=== PATIENT | male | born 1945 | race Two or more races ===

== ENCOUNTER 2018-02-14 12:44 | Inpatient (IN) | payer MEDICAID ==
[~2018-02-14] VITALS: Ht 170.2 cm; Wt 95.3 kg
[2018-02-14] MEDS ORDERED: ACETAMINOPHEN 325 MG TABLET PO PRN (18:15)
[2018-02-14] MEDS ORDERED: Z GUARD REMEDY PASTE 57 GM TUBE TOP PRN (18:15)
[2018-02-14] MEDS ORDERED: MAGNESIUM HYDROXIDE 30 ML LIQUID UDC PO PRN (18:15)
[2018-02-14] MEDS ORDERED: ONDANSETRON 4 MG/2 ML VIAL IV PRN (18:15)
[2018-02-14] MEDS ORDERED: HYDROCODONE/APAP 5-325MG TABLET PO PRN (18:15)
[2018-02-14] MEDS ORDERED: ZOLPIDEM 5 MG TABLET PO PRN (18:15)
[2018-02-14] MEDS ORDERED: LEVO100T10 PO (18:34)
[2018-02-14] MEDS ORDERED: METO-356 PO (18:34)
[2018-02-14] MEDS ORDERED: PANT40TA4 PO (18:34)
[2018-02-14] MEDS ORDERED: TAMS0.4C34 PO (18:34)
[2018-02-14] MEDS ORDERED: AMLO10TA2 PO (18:34)
[2018-02-14] MEDS ORDERED: LOSA100T15 PO (18:34)
[2018-02-14] MEDS ORDERED: ATOR40TA PO (18:54)
[2018-02-14] MEDS ORDERED: INSU100V7 SQ (18:54)
[2018-02-14] MEDS ORDERED: INSU100C4 SQ (19:15)
[2018-02-14 20:00] VITALS: BP 161/90
--- NOTE | 2018-02-14 20:00 | NUR ---
RECEIVED PATIENT AWAKE IN BED, HE'S AOX4. HE DENIES PAIN OR ANY DISTRESS. PATIENT C/O OF NUMBNESS AND TINGLING TO RIGHT EXTREMITY. BP IS ELEVATED, MD NOTIFIED AND AWAITING ORDERS. SAFETY AND COMFORT MEASURES INITIATED, CALL LIGHT LEFT WITHIN PATIENT'S REACH. WILL CONTINUE TO MONITOR PATIENT
[2018-02-14 21:00] VITALS: BP 120/78
[2018-02-14] MEDS ORDERED: DOCUSATE SODIUM 100 MG CAPSULE PO SCH (21:00)
--- NOTE | 2018-02-14 21:00 | NUR ---
REASSESSED BP NOW AT 120/78, PATIENT WITH NO C/O DISTRESS OR PAIN AT PRESENT
[2018-02-15] MEDS ORDERED: INSULIN GLARGINE,HUM 300 UNITS/3 ML CARTRIDGE SQ ONE (00:15)
[2018-02-15] MEDS: ATORVASTATIN 40 MG TABLET PO SCH ×2 (00:28→20:11)
[2018-02-15] MEDS: TAMSULOSIN HCL 0.4 MG CAP.SR.24H PO SCH ×2 (00:28→09:25)
[2018-02-15] MEDS: AMLODIPINE 10 MG TABLET PO SCH ×2 (00:29→09:26)
[2018-02-15] MEDS: INSULIN GLARGINE,HUM 300 UNITS/3 ML CARTRIDGE SQ SCH ×2 (00:43→21:51)
[2018-02-15] MEDS: LEVOTHYROXINE SODIUM 100 MCG TABLET PO SCH (06:33)
[2018-02-15] MEDS: PANTOPRAZOLE SODIUM 40 MG TABLET.DR PO SCH (06:34)
[2018-02-15] MEDS: BLOOD SUGAR DIAGNOSTIC 1 EACH STRIP VI SCH ×4 (06:53→21:50)
--- NOTE | 2018-02-15 06:53 | NUR ---
PATIENT SLEPT WELL THROUGH THE SHIFT WITH NO SIGNIFICANT CHANGES IN STATUS, V/S STABLE. PATIENT SLEEPING WITH NO ACUTE DISTRESS NOTED. SAFETY MEASURES MAINTAINED AT ALL TIMES, ALL NEEDS MET
[2018-02-15] MEDS ORDERED: PANTOPRAZOLE SODIUM 40 MG TABLET.DR PO SCH (07:00)
[2018-02-15 07:21] LABS: BASOPHILS % (AUTO) 0.5 % (0.0-2.0); EOSINOPHILS # (AUTO) 0.1 K/uL (0.0-0.7); EOSINOPHILS % (AUTO) 1.5 % (0.0-7.0); HEMATOCRIT 40.5 % (36.7-47.1); LYMPHOCYTES # (AUTO) 1.3 K/uL (20.0-40.0); LYMPHOCYTES % (AUTO) 16.7 % (20.5-51.5); MEAN CORPUSCULAR HEMOGLOBIN 30.4 uug (23.8-33.4); MEAN CORPUSCULAR HGB CONC 35 g/dL (32.5-36.3); MEAN CORPUSCULAR VOLUME 87.9 fL (73.0-96.2); MONOCYTES # (AUTO) 0.7 K/uL (2.0-10.0); MONOCYTES % (AUTO) 8.5 % (0.0-11.0); NEUTROPHILS # (AUTO) 5.6 K/uL (1.8-8.9); NEUTROPHILS % (AUTO) 72.8 % (38.5-71.5); PLATELET COUNT (AUTO) 185 K/uL (152-348); WHITE BLOOD COUNT (AUTO) 7.7 K/uL (3.6-10.2)
[2018-02-15 07:38] LABS: ALANINE AMINOTRANSFERASE 39 U/L (16-63); ALKALINE PHOSPHATASE 240 U/L (50-136); ASPARTATE AMINOTRANSFERASE 25 U/L (15-37); BILIRUBIN,TOTAL 0.6 mg/dL (0.2-1.0); CARBON DIOXIDE 29 mmol/L (21-32); CHLORIDE 102 mmol/L (98-107); CHOLESTEROL 184 mg/dL (<200); CREATININE 0.9 mg/dL (0.6-1.3); GLUCOSE 166 mg/dL (74-106); HDL CHOLESTEROL 54 mg/dL (40-60); MAGNESIUM 1.5 mg/dL (1.8-2.4); TOTAL PROTEIN, SERUM 6.7 g/dL (6.4-8.2); TRIGLYCERIDES 96 MG/DL (30-150); UREA NITROGEN, BLOOD 15 mg/dL (7-18)
[2018-02-15 08:40] VITALS: BP 123/79
[2018-02-15] MEDS: METOPROLOL SUCCINATE XL 25 MG TAB.SR.24H PO SCH (09:26)
[2018-02-15] MEDS: LOSARTAN POTASSIUM 50 MG TABLET PO SCH (09:26)
[2018-02-15] MEDS ORDERED: GLIP5TAB3 PO (12:56)
[2018-02-15] MEDS ORDERED: DEXTROSE 50% 50 ML DISP.SYRIN IV PRN (13:45)
[2018-02-15] MEDS ORDERED: MAGNESIUM OXIDE 400 MG TABLET PO ONE (14:15)
[2018-02-15] MEDS: INSULIN REGULAR, HUMAN 300 UNIT/3 ML VIAL SQ PRN ×2 (15:53→21:52)
[2018-02-15] MEDS ORDERED: BLOOD SUGAR DIAGNOSTIC 1 EACH STRIP VI SCH (16:30)
[2018-02-15] MEDS: glipiZIDE 5 MG TABLET PO SCH (16:34)
--- NOTE | 2018-02-15 19:40 | NUR ---
Received patient seated on the chair, awake, alert, verbally responsive with son at bedside. Patient is A/O x 4. Vital signs taken and recorded. No acute respi. distress noted. Denies of any pain. Patient complained of cough, auscultated lungs, clear and no abnormality noted. MD ordered Robitussin PRN, will give it later. Persistent assessment done. Call light within reach. will monitor the patient.
[2018-02-15 20:06] VITALS: BP 108/66
[2018-02-15] MEDS: GUAIFENESIN/DEXTROMETHORPHAN 5 ML UDC PO PRN (20:11)
[2018-02-16] MEDS: BLOOD SUGAR DIAGNOSTIC 1 EACH STRIP VI SCH ×4 (06:11→20:51)
[2018-02-16] MEDS: GUAIFENESIN/DEXTROMETHORPHAN 5 ML UDC PO PRN ×2 (06:12→14:31)
[2018-02-16] MEDS: LEVOTHYROXINE SODIUM 100 MCG TABLET PO SCH (06:13)
[2018-02-16] MEDS: PANTOPRAZOLE SODIUM 40 MG TABLET.DR PO SCH (06:13)
[2018-02-16] MEDS: glipiZIDE 5 MG TABLET PO SCH (06:13)
[2018-02-16 08:25] VITALS: BP 124/63
[2018-02-16] MEDS: TAMSULOSIN HCL 0.4 MG CAP.SR.24H PO SCH (08:55)
[2018-02-16] MEDS: AMLODIPINE 10 MG TABLET PO SCH (08:56)
[2018-02-16] MEDS: METOPROLOL SUCCINATE XL 25 MG TAB.SR.24H PO SCH (08:56)
[2018-02-16] MEDS: LOSARTAN POTASSIUM 50 MG TABLET PO SCH (08:57)
[2018-02-16] MEDS: INSULIN REGULAR, HUMAN 300 UNIT/3 ML VIAL SQ PRN ×3 (12:21→20:54)
--- NOTE | 2018-02-16 19:00 | NUR ---
NURSE NOTES: patient remained to be in stable condition with no acute changes throughout the shift. No SOB or distress noted. Denies any pain or discomforts. Accu check done tolerated well. hourly rounding done. Call light within reach at all times. will endorse to incoming shift
--- NOTE | 2018-02-16 19:40 | NUR ---
Received patient in bed, awake, alert, verbally responsive with family at bedside. Patient is A/O x 4. Vital signs taken and recorded. No acute respi. distress noted. Denies of any pain. Complained of cough. Persistent assessment done. Call light within reach. will monitor the patient.
[2018-02-16 20:00] VITALS: BP 122/74
[2018-02-16] MEDS: ATORVASTATIN 40 MG TABLET PO SCH (20:52)
[2018-02-16] MEDS: INSULIN GLARGINE,HUM 300 UNITS/3 ML CARTRIDGE SQ SCH (20:53)
[2018-02-17] MEDS: LEVOTHYROXINE SODIUM 100 MCG TABLET PO SCH (06:21)
[2018-02-17] MEDS: glipiZIDE 5 MG TABLET PO SCH (06:21)
[2018-02-17] MEDS: GUAIFENESIN/DEXTROMETHORPHAN 5 ML UDC PO PRN ×2 (06:22→16:45)
[2018-02-17] MEDS: BLOOD SUGAR DIAGNOSTIC 1 EACH STRIP VI SCH ×4 (06:24→20:29)
[2018-02-17] MEDS: PANTOPRAZOLE SODIUM 40 MG TABLET.DR PO SCH (06:26)
--- NOTE | 2018-02-17 07:00 | NUR ---
NURSE NOTES: Patient received awake, on his chair reading his book at the bedside with no SOB or discomforts. Call light within reach. Will continue to monitor.
[2018-02-17] MEDS: INSULIN REGULAR, HUMAN 300 UNIT/3 ML VIAL SQ PRN ×3 (07:54→20:30)
[2018-02-17 08:55] VITALS: BP 126/64
[2018-02-17] MEDS: METOPROLOL SUCCINATE XL 25 MG TAB.SR.24H PO SCH (09:00)
[2018-02-17] MEDS: TAMSULOSIN HCL 0.4 MG CAP.SR.24H PO SCH (09:07)
[2018-02-17] MEDS: AMLODIPINE 10 MG TABLET PO SCH (09:08)
[2018-02-17] MEDS: LOSARTAN POTASSIUM 50 MG TABLET PO SCH (09:08)
--- NOTE | 2018-02-17 13:36 | NUR ---
INTERDISCIPLINARY TEAM CONFERENCE
--- NOTE | 2018-02-17 15:55 | NUR ---
NURSE NOTES: patient awake, alert and oriented, on the chair seated with no SOB or distress. Denies any pain at this time. Call light within reach. Encouraged to use call light whenever assistance is needed. Patient tolerated his scheduled PT and OT exercises. will continue to monitor.
--- NOTE | 2018-02-17 18:48 | NUR ---
NURSE NOTES: patient remained stable throughout the shift with no acute changes. Hourly rounding done. call light within reach at all times. all needs were attended and anticipated. Will endorse to incoming shift
--- NOTE | 2018-02-17 19:30 | NUR ---
PATIENT WALKING AROUND THE HALLWAY. N C/O OF PAIN OR ANY DISCOMFORT.
[2018-02-17 20:23] VITALS: BP 120/64
[2018-02-17] MEDS: ATORVASTATIN 40 MG TABLET PO SCH (20:27)
[2018-02-17] MEDS: INSULIN GLARGINE,HUM 300 UNITS/3 ML CARTRIDGE SQ SCH (20:30)
--- NOTE | 2018-02-18 06:24 | NUR ---
Patient lying on bed, intermittently sleeping, arousing top verbal commands. no discomforted. BS ac 139.
[2018-02-18] MEDS: PANTOPRAZOLE SODIUM 40 MG TABLET.DR PO SCH ×2 (06:39→09:00)
[2018-02-18] MEDS: LEVOTHYROXINE SODIUM 100 MCG TABLET PO SCH ×2 (06:39→08:57)
[2018-02-18] MEDS: BLOOD SUGAR DIAGNOSTIC 1 EACH STRIP VI SCH ×4 (06:40→21:15)
[2018-02-18 08:00] VITALS: BP 146/65
[2018-02-18] MEDS: METOPROLOL SUCCINATE XL 25 MG TAB.SR.24H PO SCH (08:57)
[2018-02-18] MEDS: TAMSULOSIN HCL 0.4 MG CAP.SR.24H PO SCH (08:58)
[2018-02-18] MEDS: glipiZIDE 5 MG TABLET PO SCH (08:58)
[2018-02-18] MEDS: LOSARTAN POTASSIUM 50 MG TABLET PO SCH (09:02)
[2018-02-18] MEDS: AMLODIPINE 10 MG TABLET PO SCH (09:02)
[2018-02-18 20:00] VITALS: BP 114/67
[2018-02-18] MEDS: ATORVASTATIN 40 MG TABLET PO SCH (21:09)
[2018-02-18] MEDS: GUAIFENESIN/DEXTROMETHORPHAN 5 ML UDC PO PRN (21:11)
[2018-02-18] MEDS: INSULIN GLARGINE,HUM 300 UNITS/3 ML CARTRIDGE SQ SCH (21:14)
[2018-02-18] MEDS: INSULIN REGULAR, HUMAN 300 UNIT/3 ML VIAL SQ PRN (21:14)
--- NOTE | 2018-02-19 06:29 | NUR ---
Patient sleeping , easily arousing to to verbal commands. BS check done with reading 114. No c/o pain or any discomfort.
[2018-02-19] MEDS: BLOOD SUGAR DIAGNOSTIC 1 EACH STRIP VI SCH ×4 (06:51→20:31)
[2018-02-19] MEDS: LEVOTHYROXINE SODIUM 100 MCG TABLET PO SCH (07:29)
[2018-02-19] MEDS: PANTOPRAZOLE SODIUM 40 MG TABLET.DR PO SCH (07:29)
[2018-02-19 08:00] VITALS: BP 129/91
[2018-02-19] MEDS: AMLODIPINE 10 MG TABLET PO SCH (08:57)
[2018-02-19] MEDS: LOSARTAN POTASSIUM 50 MG TABLET PO SCH (08:58)
[2018-02-19] MEDS: TAMSULOSIN HCL 0.4 MG CAP.SR.24H PO SCH (08:58)
[2018-02-19] MEDS: METOPROLOL SUCCINATE XL 25 MG TAB.SR.24H PO SCH (09:00)
[2018-02-19] MEDS: glipiZIDE 5 MG TABLET PO SCH (09:04)
[2018-02-19 19:30] VITALS: BP 126/75
--- NOTE | 2018-02-19 19:40 | NUR ---
Received patient in bed, awake, alert and verbally responsive. Patient is A/O x 4. Vital signs taken and recorded. No acute respi. distress noted. Denies of any pain. Persistent assessment done. Call light within reach. will monitor the patient.
[2018-02-19] MEDS: ATORVASTATIN 40 MG TABLET PO SCH (20:31)
[2018-02-19] MEDS: INSULIN GLARGINE,HUM 300 UNITS/3 ML CARTRIDGE SQ SCH (20:37)
[2018-02-19] MEDS: INSULIN REGULAR, HUMAN 300 UNIT/3 ML VIAL SQ PRN (20:38)
[2018-02-20] MEDS: GUAIFENESIN/DEXTROMETHORPHAN 5 ML UDC PO PRN ×2 (04:26→21:19)
[2018-02-20] MEDS: ACETAMINOPHEN 325 MG TABLET PO PRN ×2 (04:41→21:19)
[2018-02-20] MEDS: LEVOTHYROXINE SODIUM 100 MCG TABLET PO SCH (06:21)
[2018-02-20] MEDS: glipiZIDE 5 MG TABLET PO SCH (06:21)
[2018-02-20] MEDS: PANTOPRAZOLE SODIUM 40 MG TABLET.DR PO SCH (06:21)
[2018-02-20] MEDS: BLOOD SUGAR DIAGNOSTIC 1 EACH STRIP VI SCH ×4 (06:33→21:15)
[2018-02-20 07:15] VITALS: BP 126/62
[2018-02-20] MEDS: METOPROLOL SUCCINATE XL 25 MG TAB.SR.24H PO SCH (09:00)
[2018-02-20] MEDS: TAMSULOSIN HCL 0.4 MG CAP.SR.24H PO SCH (09:02)
[2018-02-20] MEDS: AMLODIPINE 10 MG TABLET PO SCH (09:02)
[2018-02-20] MEDS: LOSARTAN POTASSIUM 50 MG TABLET PO SCH (09:03)
[2018-02-20] MEDS: INSULIN REGULAR, HUMAN 300 UNIT/3 ML VIAL SQ PRN ×2 (11:51→21:16)
--- NOTE | 2018-02-20 19:35 | NUR ---
Patient seated on a chair, awake, alert, verbally responsive with his fried at bedside. Patient is A/O x 4. Vital signs taken and recorded. No acute respi. distress noted. Denies of any pain. Complained of cough. Persistent assessment done. Call light within reach. will monitor the patient.
[2018-02-20 20:14] VITALS: BP 127/72
[2018-02-20] MEDS: ATORVASTATIN 40 MG TABLET PO SCH (21:12)
[2018-02-20] MEDS: INSULIN GLARGINE,HUM 300 UNITS/3 ML CARTRIDGE SQ SCH (21:17)
[2018-02-21] MEDS: glipiZIDE 5 MG TABLET PO SCH (06:20)
[2018-02-21] MEDS: PANTOPRAZOLE SODIUM 40 MG TABLET.DR PO SCH (06:20)
[2018-02-21] MEDS: LEVOTHYROXINE SODIUM 100 MCG TABLET PO SCH (06:20)
[2018-02-21] MEDS: BLOOD SUGAR DIAGNOSTIC 1 EACH STRIP VI SCH ×2 (06:23→11:30)
[2018-02-21 07:15] VITALS: BP 127/66
[2018-02-21] MEDS: TAMSULOSIN HCL 0.4 MG CAP.SR.24H PO SCH (09:04)
[2018-02-21] MEDS: LOSARTAN POTASSIUM 50 MG TABLET PO SCH (09:04)
[2018-02-21] MEDS: AMLODIPINE 10 MG TABLET PO SCH (09:04)
[2018-02-21 09:05] VITALS: BP 127/66
[2018-02-21] MEDS: METOPROLOL SUCCINATE XL 25 MG TAB.SR.24H PO SCH (09:05)
--- NOTE | 2018-02-21 10:06 | NUR ---
SBAR report received, board updated. Pt assessed to be in no acute distress or pain. Plan of care for today including anticipated D/C discussed, along with private transportation by son. Pt compliant with all routinely scheduled morning medications. Call light within reach. All safety and comfort needs met. Will continue to monitor and follow up as needed.
--- NOTE | 2018-02-21 12:30 | NUR ---
Discharge order received will follow through with discharge paper work. Plan of care discussed with Pt, and ride arranged with Son to pick up and delivery driver Pt between 1300-1400hrs.
[2018-02-21] MEDS: INSULIN REGULAR, HUMAN 300 UNIT/3 ML VIAL SQ PRN (13:16)
--- NOTE | 2018-02-21 15:00 | NUR ---
Discharge paperwork, Pt education material, and belongings list reviewed with Pt and Son, signed, and copies placed in chart. Rx discussed and faxed to specified pharmacy. No at home medications to return. VS taken to be 107/56, 58, 98.5, and 96% O2 on RA. Pt denies any c/o pain or SOB at this time. Pt reports feeling well and excited to return home. No wound pictures to update. All needs attended to and discharge concerns addressed, along with scheduled follow up appointment. ID band removed. Pt safely escorted out to private car with Son.
== END 2018-02-21 15:00 | disposition home health service (06) | DRG 58 ==
PROVIDERS: ADMIT Physical Medicine & Rehabilitation Pain Medicine; ATTEND Physical Medicine & Rehabilitation Pain Medicine
DX: I69.351 Hemiplegia and hemiparesis following cerebral infarction affecting right dominant side (principal); D68.59 Other primary thrombophilia; E11.65 Type 2 diabetes mellitus with hyperglycemia; I69.398 Other sequelae of cerebral infarction; I10 Essential (primary) hypertension; I69.392 Facial weakness following cerebral infarction; E78.5 Hyperlipidemia, unspecified; R20.0 Anesthesia of skin; E03.9 Hypothyroidism, unspecified; E66.9 Obesity, unspecified; Z68.32 Body mass index [BMI] 32.0-32.9, adult; F17.210 Nicotine dependence, cigarettes, uncomplicated; R26.0 Ataxic gait; E83.42 Hypomagnesemia; Z91.018 Allergy to other foods
CPT/HCPCS: 36415; 70030-TC; 83735; 85025; 85610; 92523; 97110; 97112; 97116; 97165; 97530; A4663; J1815